=== PATIENT | female | born 1995 | race Two or more races ===

== ENCOUNTER 2020-09-27 20:10 | Emergency (ER) | payer MEDICAID, OTHER ==
[~2020-09-27] VITALS: Ht 154.9 cm; Wt 97.1 kg
[2020-09-27 20:12] VITALS: BP 153/99
== END 2020-09-28 00:12 | disposition home or self-care (01) ==
LOC: ER 20:23
DX: S30.1XXA Contusion of abdominal wall, initial encounter (principal); S80.01XA Contusion of right knee, initial encounter; V49.9XXA Car occupant (driver) (passenger) injured in unspecified traffic accident, initial encounter; Y93.89 Activity, other specified; Y92.89 Other specified places as the place of occurrence of the external cause; Y99.8 Other external cause status
CPT/HCPCS: 73562; 74176; 81025

== ENCOUNTER 2021-04-25 17:48 | Emergency (ER) | payer MEDICAID ==
[~2021-04-25] VITALS: Ht 154.9 cm; Wt 96.2 kg
[2021-04-25 21:54] LABS: Urine Amorphous Crystal MANY /hpf (None Seen); Urine Bacteria NONE SEEN /hpf (None Seen); Urine Blood Negative /uL (Negative); Urine Specific Gravity 1.023 (1.001-1.035); Urine WBC 5 /hpf (0 - 5)
[2021-04-25 22:43] VITALS: BP 164/86
== END 2021-04-25 23:41 | disposition home or self-care (01) ==
LOC: ER 17:48
DX: R07.89 Other chest pain (principal); M79.10 Myalgia, unspecified site; F41.9 Anxiety disorder, unspecified; E66.9 Obesity, unspecified; Z68.41 Body mass index [BMI] 40.0-44.9, adult; Z20.822 Contact with and (suspected) exposure to COVID-19
CPT/HCPCS: 36415; 71046; 81001; 81025; 87426; 93005

== ENCOUNTER 2023-05-24 13:01 | Emergency (ER) | payer MEDICAID ==
[~2023-05-24] VITALS: Ht 154.9 cm; Wt 97.2 kg
[2023-05-24] MEDS ORDERED: ONDANSETRON ODT 4 MG TAB PO ONE (13:15)
[2023-05-24] MEDS ORDERED: KETOROLAC TROMETH 60MG/2ML VIAL IM ONE (13:15)
[2023-05-24 13:45] VITALS: BP 142/92; PULSE 95; RESP 18; TEMP 97.1; O2SAT 99
[2023-05-24 13:51] LABS: Basophils # (auto) 0 10 ^3/uL (0-0.2); Basophils % (auto) 0.4 % (0.0-2.0); Eosinophils # (auto) 0.1 10 ^3/uL (0-0.8); Eosinophils % (auto) 1.3 % (0.0-7.0); Hematocrit 42.8 % (36.0-46.0); Hemoglobin 14.4 g/dL (12.2-16.2); Lymphocytes # (auto) 1.7 10 ^3/uL (0.4-5.4); Lymphocytes % (auto) 19.7 % (10.0-50.0); Mean Corpuscular Hemoglobin 29.6 pg (28.0-32.0); Mean Corpuscular Hgb Conc. 33.5 g/dL (32.0-36.0); Mean Corpuscular Volume 88.3 fL (80.0-100.0); Monocytes # (auto) 0.6 10 ^3/uL (0-1.3); Monocytes % (auto) 7.6 % (0.0-12.0); Red Blood Cells 4.85 10^6/uL (4.0-5.20); Red Cell Distribution Width 13.3 % (11.8-14.3); White Blood Cell 8.5 10^3/uL (4.4-10.8)
[2023-05-24 13:56] LABS: Urine Bacteria FEW /hpf (None Seen); Urine Blood Negative /uL (Negative); Urine Clarity HAZY (Clear); Urine Color Yellow (Yellow); Urine Hyaline Cast FEW /lpf (0 - 2); Urine Mucus FEW (None Seen); Urine Protein, UAD Negative (Negative); Urine Specific Gravity 1.024 (1.001-1.035); Urine Urobilinogen Normal (Negative); Urine WBC 2 /hpf (0 - 5)
[2023-05-24 14:04] LABS: Alanine Aminotransferase 27 U/L (7-40); Albumin 4.8 g/dL (3.2-4.8); Alkaline Phosphatase 80 U/L (46-116); Anion Gap 4 (5-15); Aspartate Aminotransferase 19 U/L (13-40); BUN/Creatinine Ratio 10.7 (10.0-20.0); Blood Urea Nitrogen 8 mg/dL (9-23); Calcium 9.5 mg/dL (8.7-10.4); Carbon Dioxide 31 mmol/L (20-30); Chloride 105 mmol/L (98-107); Glucose 102 mg/dL (74-106); Potassium 4.1 mmol/L (3.5-5.1); Sodium 140 mmol/L (136-145)
[2023-05-24 14:05] LABS: Bilirubin, Total 0.3 mg/dL (0.2-1.0); Total Protein 7.1 g/dL (5.7-8.2)
[2023-05-24] MEDS ORDERED: ZOFR4T PO (14:17)
[2023-05-24] MEDS ORDERED: NAP500T PO (14:17)
== END 2023-05-24 14:29 | disposition home or self-care (01) ==
LOC: ER 13:01
DX: R10.32 Left lower quadrant pain (principal); R10.2 Pelvic and perineal pain; R11.0 Nausea
CPT/HCPCS: 36415; 80053; 81001; 84702; 85025; 96372; 99283; J1885; Q0162

== ENCOUNTER 2023-06-14 11:39 | Emergency (ER) | payer MEDICAID ==
[~2023-06-14] VITALS: Ht 154.9 cm; Wt 104.6 kg
[~2023-06-14 11:39] MED LIST: NAP500T PO; ZOFR4T PO
[2023-06-14 12:12] LABS: Basophils # (auto) 0.1 10 ^3/uL (0-0.2); Basophils % (auto) 0.9 % (0.0-2.0); Eosinophils # (auto) 0.1 10 ^3/uL (0-0.8); Eosinophils % (auto) 1.3 % (0.0-7.0); Hematocrit 43.3 % (36.0-46.0); Hemoglobin 14.4 g/dL (12.2-16.2); Lymphocytes # (auto) 1.4 10 ^3/uL (0.4-5.4); Lymphocytes % (auto) 17.5 % (10.0-50.0); Mean Corpuscular Hemoglobin 29.2 pg (28.0-32.0); Mean Corpuscular Hgb Conc. 33.3 g/dL (32.0-36.0); Mean Corpuscular Volume 87.9 fL (80.0-100.0); Monocytes # (auto) 0.5 10 ^3/uL (0-1.3); Monocytes % (auto) 6.1 % (0.0-12.0); Neutrophils # (auto) 6.1 10 ^3/uL (1.6-8.6); Neutrophils % (auto) 74.2 % (37.0-80.0); Red Blood Cells 4.93 10^6/uL (4.0-5.20); Red Cell Distribution Width 13.3 % (11.8-14.3); White Blood Cell 8.2 10^3/uL (4.4-10.8)
[2023-06-14] MEDS: KETOROLAC TROMETH 60MG/2ML VIAL IM ONE (12:15)
[2023-06-14 12:28] LABS: Alanine Aminotransferase 18 U/L (7-40); Albumin 4.8 g/dL (3.2-4.8); Alkaline Phosphatase 69 U/L (46-116); Anion Gap 6 (5-15); Aspartate Aminotransferase 18 U/L (13-40); BUN/Creatinine Ratio 12.5 (10.0-20.0); Blood Urea Nitrogen 9 mg/dL (9-23); Calcium 9.4 mg/dL (8.5-10.1); Carbon Dioxide 29 mmol/L (20-30); Chloride 104 mmol/L (98-107); Glucose 100 mg/dL (74-106); Potassium 3.8 mmol/L (3.5-5.1); Sodium 139 mmol/L (136-145)
[2023-06-14 12:29] LABS: Bilirubin, Direct 0.1 mg/dL (<0.3); Bilirubin, Total 0.4 mg/dL (0.2-1.0); Total Protein 7.1 g/dL (5.7-8.2)
[2023-06-14 12:39] LABS: Lipase 40 U/L (12-53)
[2023-06-14] MEDS: ONDANSETRON ODT 4 MG TAB PO ONE (12:58)
[2023-06-14] MEDS ORDERED: NORGTAB PO (13:57)
[2023-06-14] MEDS ORDERED: NAP500T PO (13:57)
[2023-06-14 14:07] VITALS: BP 105/73; PULSE 78; RESP 20; TEMP 98.2; O2SAT 99
== END 2023-06-14 14:13 | disposition home or self-care (01) ==
LOC: ER 11:39
DX: N83.202 Unspecified ovarian cyst, left side (principal); R10.2 Pelvic and perineal pain; Z79.899 Other long term (current) drug therapy
CPT/HCPCS: 36415; 76830; 76856; 80048; 80076; 83690; 84702; 85025; 96372; 99285; J1885; Q0162